=== PATIENT | female | born 1960 | race Two or more races ===

== ENCOUNTER → 2024-10-18 | Emergency (ER) | payer OTHER ==
[~2024-10-18] VITALS: Ht 154.9 cm; Wt 69.4 kg
[~2024-10-18] MED LIST: AVAPRO75 MG PO; OMEPRAZOLE MAGN20 MG; PEPCID AC20 MG; TOPROL XL50 M1
== END | disposition left against medical advice (07) ==
LOC: ER 01:42
DX: Z53.21 Procedure and treatment not carried out due to patient leaving prior to being seen by health care provider (principal)